=== PATIENT | male | born 1980 | race Caucasian/White ===

== ENCOUNTER 2020-10-27 14:15 | Emergency (ER) | payer BC ==
[2020-10-27] MEDS ORDERED: Ondansetron 4 MG Tab.DIS ONE (15:18)
[2020-10-27] MEDS ORDERED: Ondansetron 4 MG Tab.DIS PO ONE (15:21)
--- NOTE | 2020-10-27 15:47 | EDM.PDOC ---
ED HPI GENERAL MEDICAL PROBLEM - General Chief Complaint: Cardiovascular Problem Stated Complaint: DIABETIC/PASSING OUT Time Seen by Provider: 10/27/20 14:15 Source of Information: Reports: Patient, Family, RN - History of Present Illness INITIAL COMMENTS - FREE TEXT/NARRATIVE: 40-year-old male who is an insulin-dependent diabetic pump has been doing well recently and feeling perfectly fine. Today he was at the store with his when his heard him fall and he said that he felt that he was getting faint before he fell down. He was able to get up and it would come to the emergency department and arrival here in the waiting room had another brief episode of syncope and then once he got into the room and was being monitored he had another couple of episodes when he would say I am getting lightheaded and then started lose it momentarily and was noted to have a bradycardia on the monitor that would explain why he was having this syncopal fair. He had about 6 of these over. Of 20 or 30 minutes but none since. He has no cardiac history He is in generally good health aside from his diabetes. He is outside in subject potential Lyme disease although perhaps this time of the year. He has had his thyroid checked in the past. He does not complain of any headache or evidence of injury to his head. Location: Reports: Lower Extremity, Right - Related Data Allergies Allergy/AdvReac Type Severity Reaction Status Date / Time No Known Allergies Allergy Verified 10/27/20 14:39 Home Meds: Home Meds Insulin Aspart 1 unit SQ ASDIRECTED 10/27/20 [History] Past Medical History Endocrine/Metabolic History: Reports: Diabetes, Type I - Infectious Disease History Infectious Disease History: Reports: Herpes - Past Surgical History Musculoskeletal Surgical History: Reports: Other (See Below) Other Musculoskeletal Surgeries/Procedures:: chest wall repair Social & Family History - Tobacco Use Tobacco Use Status *Q: Never Tobacco User ED ROS GENERAL - Review of Systems Review Of Systems: See Below Constitutional: Reports: No Symptoms (10 systems reviewed and they are all negative except for what is described in HPI) ED EXAM, GENERAL - Physical Exam Exam: See Below Free Text/Narrative:: Initial exam is that of a man was able to get out of the wheelchair and onto the gurney and undressed although looking pale. Once he is onto the bed he again feels like he is passing out and does for a few seconds. Monitor is placed and he has a few more episodes of a few seconds of bradycardia coincident with this feeling of passing out. Once this passes his vital signs are otherwise stable and his exam is normal. HEENT shows eyes ears nose and throat are normal no facial droop tongue is midline hearing vision are normal no evidence of injury to the head. Neck is supple normal range of motion Chest is clear with a regular rate and rhythm no abnormal sounds Abdomen soft with active bowel sounds Skin is normal without rash or edema Extremities no deformity Neurologic physiologic urine tone. Exam Limited By: No Limitations General Appearance: Alert, WD/WN, No Apparent Distress Course - Vital Signs Text/Narrative:: 40-year-old insulin-dependent diabetic with a pump was at the store when he had a syncopal episode and about for 5 more here once he got emergency department with documented bradycardia. His work-up thus far is negative with exception of elevated bilirubin which is chronic. He is now been approximately an hour without any bradycardic episodes or syncope. Monitoring is necessary and a call was placed to [place] [facility] Dr. Ricardo and fur coat sewer is consulted and the hospitalist is awaiting transfer to telemetry at [facility]. Patient proved alert and cooperative at the time of discharge Last Recorded V/S: Last Vital Signs Temp 36.1 C 10/27/20 15:20 Pulse 66 10/27/20 17:11 Resp 17 10/27/20 17:11 BP 113/59 L 10/27/20 17:11 Pulse Ox 97 10/27/20 17:11 - Orders/Labs/Meds Orders: Active Orders 24 hr Category Date Time Status Chest 1V Frontal [CR] Stat Exams 10/27/20 14:32 Taken LYME, TOTAL AB TEST/REFLEX Stat Lab 10/27/20 14:30 Received EKG 12 Lead [EK] Stat Ther 10/27/20 14:30 Ordered Labs: Laboratory Tests 10/27/20 10/27/20 10/27/20 Range/Units 14:30 14:30 14:30 WBC 9.5 (4.5-11.0) K/uL RBC 5.25 (4.30-5.90) M/uL Hgb 16.1 H (12.0-15.0) g/dL Hct 47.0 (40.0-54.0) % MCV 90 (80-98) fL MCH 31 (27-31) pg MCHC 34 (32-36) % Plt Count 287 (150-400) K/uL ABG Hemoglobin (13.5-18.0) g/dL ABG Oxyhemoglobin % ABG Carboxyhemoglobin (0.0-1.6) % ABG Methemoglobin % VBG pH (7.350-7.450) VBG pCO2 mm/Hg VBG pO2 mm/Hg VBG HCO3 mmol/L VBG Total CO2 mmol/L VBG O2 Saturation VBG O2 Content %vol VBG Base Excess mm/L O2 Delivery Device Sodium 138 L (140-148) mmol/L Potassium 3.7 (3.6-5.2) mmol/L Chloride 104 (100-108) mmol/L Carbon Dioxide 25 (21-32) mmol/L Anion Gap 12.7 (5.0-14.0) mmol/L BUN 14 (7-18) mg/dL Creatinine 1.2 (0.8-1.3) mg/dL Est Cr Clr Drug Dosing TNP Estimated GFR (MDRD) > 60 (>60) Glucose 189 H (74-106) mg/dL Calcium 8.0 L (8.5-10.1) mg/dL Total Bilirubin 1.8 H (0.2-1.0) mg/dL AST 31 (15-37) U/L ALT 36 (12-78) U/L Alkaline Phosphatase 68 (46-116) U/L Troponin I 0.027 (0.000-0.056) ng/mL C-Reactive Protein 0.12 (0.0-0.3) mg/dL NT-Pro-B Natriuret Pep 18 (5-125) pg/mL Total Protein 6.4 (6.4-8.2) g/dL Albumin 3.8 (3.4-5.0) g/dL Globulin 2.6 (2.3-3.5) g/dL Albumin/Globulin Ratio 1.5 (1.2-2.2) TSH, Ultra Sensitive (0.358-3.740) uIU/mL Urine Color (YELLOW) Urine Appearance (CLEAR) Urine pH (5.0-8.0) Ur Specific [place] (1.008-1.030) Urine Protein (NEGATIVE) mg/dL Urine Glucose (UA) (NEGATIVE) mg/dL Urine Ketones (NEGATIVE) mg/dL Urine Occult Blood (NEGATIVE) Urine Nitrite (NEGATIVE) Urine Bilirubin (NEGATIVE) Urine Urobilinogen (0.2-1.0) EU/dL Ur Leukocyte Esterase (NEGATIVE) Urine RBC (0-5) Urine WBC (0-5) Ur Epithelial Cells Amorphous Sediment Urine Bacteria Urine Mucus SARS CoV-2 RNA Rapid LITO 10/27/20 10/27/20 10/27/20 Range/Units 14:30 14:42 15:41 WBC (4.5-11.0) K/uL RBC (4.30-5.90) M/uL Hgb (12.0-15.0) g/dL Hct (40.0-54.0) % MCV (80-98) fL MCH (27-31) pg MCHC (32-36) % Plt Count (150-400) K/uL ABG Hemoglobin 16.2 (13.5-18.0) g/dL ABG Oxyhemoglobin 81.3 % ABG Carboxyhemoglobin 1.9 H (0.0-1.6) % ABG Methemoglobin 1.0 % VBG pH 7.377 (7.350-7.450) VBG pCO2 43.1 mm/Hg VBG pO2 50.2 mm/Hg VBG HCO3 24.7 mmol/L VBG Total CO2 21.3 mmol/L VBG O2 Saturation 83.7 VBG O2 Content 18.5 %vol VBG Base Excess -0.1 mm/L O2 Delivery Device Room air Sodium (140-148) mmol/L Potassium (3.6-5.2) mmol/L Chloride (100-108) mmol/L Carbon Dioxide (21-32) mmol/L Anion Gap (5.0-14.0) mmol/L BUN (7-18) mg/dL Creatinine (0.8-1.3) mg/dL Est Cr Clr Drug Dosing Estimated GFR (MDRD) (>60) Glucose (74-106) mg/dL Calcium (8.5-10.1) mg/dL Total Bilirubin (0.2-1.0) mg/dL AST (15-37) U/L ALT (12-78) U/L Alkaline Phosphatase (46-116) U/L Troponin I (0.000-0.056) ng/mL C-Reactive Protein (0.0-0.3) mg/dL NT-Pro-B Natriuret Pep (5-125) pg/mL Total Protein (6.4-8.2) g/dL Albumin (3.4-5.0) g/dL Globulin (2.3-3.5) g/dL Albumin/Globulin Ratio (1.2-2.2) TSH, Ultra Sensitive 1.812 (0.358-3.740) uIU/mL Urine Color (YELLOW) Urine Appearance (CLEAR) Urine pH (5.0-8.0) Ur Specific [place] (1.008-1.030) Urine Protein (NEGATIVE) mg/dL Urine Glucose (UA) (NEGATIVE) mg/dL Urine Ketones (NEGATIVE) mg/dL Urine Occult Blood (NEGATIVE) Urine Nitrite (NEGATIVE) Urine Bilirubin (NEGATIVE) Urine Urobilinogen (0.2-1.0) EU/dL Ur Leukocyte Esterase (NEGATIVE) Urine RBC (0-5) Urine WBC (0-5) Ur Epithelial Cells Amorphous Sediment Urine Bacteria Urine Mucus SARS CoV-2 RNA Rapid LITO Negative 10/27/20 Range/Units 17:01 WBC (4.5-11.0) K/uL RBC (4.30-5.90) M/uL Hgb (12.0-15.0) g/dL Hct (40.0-54.0) % MCV (80-98) fL MCH (27-31) pg MCHC (32-36) % Plt Count (150-400) K/uL ABG Hemoglobin (13.5-18.0) g/dL ABG Oxyhemoglobin % ABG Carboxyhemoglobin (0.0-1.6) % ABG Methemoglobin % VBG pH (7.350-7.450) VBG pCO2 mm/Hg VBG pO2 mm/Hg VBG HCO3 mmol/L VBG Total CO2 mmol/L VBG O2 Saturation VBG O2 Content %vol VBG Base Excess mm/L O2 Delivery Device Sodium (140-148) mmol/L Potassium (3.6-5.2) mmol/L Chloride (100-108) mmol/L Carbon Dioxide (21-32) mmol/L Anion Gap (5.0-14.0) mmol/L BUN (7-18) mg/dL Creatinine (0.8-1.3) mg/dL Est Cr Clr Drug Dosing Estimated GFR (MDRD) (>60) Glucose (74-106) mg/dL Calcium (8.5-10.1) mg/dL Total Bilirubin (0.2-1.0) mg/dL AST (15-37) U/L ALT (12-78) U/L Alkaline Phosphatase (46-116) U/L Troponin I (0.000-0.056) ng/mL C-Reactive Protein (0.0-0.3) mg/dL NT-Pro-B Natriuret Pep (5-125) pg/mL Total Protein (6.4-8.2) g/dL Albumin (3.4-5.0) g/dL Globulin (2.3-3.5) g/dL Albumin/Globulin Ratio (1.2-2.2) TSH, Ultra Sensitive (0.358-3.740) uIU/mL Urine Color Yellow (YELLOW) Urine Appearance Clear (CLEAR) Urine pH 7.5 (5.0-8.0) Ur Specific [place] 1.020 (1.008-1.030) Urine Protein Trace H (NEGATIVE) mg/dL Urine Glucose (UA) 100 H (NEGATIVE) mg/dL Urine Ketones Negative (NEGATIVE) mg/dL Urine Occult Blood Negative (NEGATIVE) Urine Nitrite Negative (NEGATIVE) Urine Bilirubin Negative (NEGATIVE) Urine Urobilinogen 1.0 (0.2-1.0) EU/dL Ur Leukocyte Esterase Negative (NEGATIVE) Urine RBC 0-5 (0-5) Urine WBC 0-5 (0-5) Ur Epithelial Cells Not seen Amorphous Sediment Rare Urine Bacteria Rare Urine Mucus Occasional SARS CoV-2 RNA Rapid LITO Meds: Medications Discontinued Medications Generic Name Dose Route Start Last Admin Trade Name Freq PRN Reason Stop Dose Admin Ondansetron HCl Confirm 10/27/20 15:18 Zofran Odt Administered 10/27/20 15:19 Dose 4 mg .ROUTE .STK-MED ONE Ondansetron HCl 4 mg 10/27/20 15:21 10/27/20 15:22 Zofran Odt PO 10/27/20 15:22 4 mg ONETIME ONE Administration Departure - Departure Time of Disposition: 17:00 Disposition: DC/Tfer to Acute Hospital 02 Reason for Transfer *Q: Other Condition: Good Clinical Impression: Syncope, Bradycardia, Diabetes Referrals: PCP,None [Primary Care Provider] - Forms: ED Department Discharge, Interfacility Transfer EMTALA Additional Instructions: Dr. Ricardo in cardiology and [facility] is consulted and agrees to accept the patient in cardiology Dr. Dominguez the hospitalist agrees to accept the patient in transfer. Patient is stable here upon discharge is up looking fine at the moment and in no distress Sepsis Event Note (ED) - Evaluation Sepsis Screening Result: No Definite Risk - Focused Exam Vital Signs: Vital Signs Temp Pulse Resp BP Pulse Ox 10/27/20 17:11 66 17 113/59 L 97 10/27/20 16:44 65 10 L 117/64 99 10/27/20 16:12 63 13 115/53 L 99 10/27/20 15:38 61 10 L 118/76 98 10/27/20 15:23 59 L 14 112/71 98 10/27/20 15:20 36.1 C 58 L 19 111/67 97 10/27/20 15:08 58 L 19 111/67 97 10/27/20 14:50 57 L 15 110/69 97 10/27/20 14:28 117/68 10/27/20 14:21 36.1 C 47 L 8 L 103/68 95 10/27/20 14:18 55 L 13 112/62 94 L - My Orders Last 24 Hours: My Active Orders 10/27/20 14:30 LYME, TOTAL AB TEST/REFLEX Stat EKG 12 Lead [EK] Stat 10/27/20 14:32 Chest 1V Frontal [CR] Stat - Assessment/Plan Last 24 Hours: My Active Orders 10/27/20 14:30 LYME, TOTAL AB TEST/REFLEX Stat EKG 12 Lead [EK] Stat 10/27/20 14:32 Chest 1V Frontal [CR] Stat
--- NOTE | 2020-10-28 12:22 | CR ---
CHEST: Portable 10/27/2020 at 3:05 PM CLINICAL HISTORY:Pain COMPARISON:None FINDINGS: Heart is mildly enlarged. There is some mild vascular cephalization. This is likely positional. No infiltrates are seen. Impression: Limited portable supine chest. Mild cardiomegaly No infiltrates are seen
[2020-10-30 08:14] LABS: LYME IGG/IGM AB <0.91 ISR (0.00-0.90)
== END 2020-10-27 18:05 ==
LOC: JP.ED 14:15
DX: R55 Syncope and collapse (principal); R00.1 Bradycardia, unspecified; E10.9 Type 1 diabetes mellitus without complications; Z20.822 Contact with and (suspected) exposure to COVID-19
CPT/HCPCS: 36415; 71045; 80053; 81001; 82803; 83880; 84443; 84484; 85027; 86140; 86618; 87635; 93005; 93010; 99285; A9270; U0002

== ENCOUNTER 2022-06-15 07:47 | Emergency (ER) | payer BC, OTHER | END 2022-06-15 10:48 | disposition home or self-care (01) | LOC: JP.ED 07:47 | DX: R20.2 Paresthesia of skin (principal); E10.9 Type 1 diabetes mellitus without complications; Z86.16 Personal history of COVID-19; Z20.822 Contact with and (suspected) exposure to COVID-19 | CPT/HCPCS: 70450; 70551; 70551-26; 99284; U0002 ==

== ENCOUNTER 2022-11-03 09:35 | Emergency (ER) | payer OTHER ==
[2022-11-03 11:01] LABS: ESTIMATED GFR 96 mL/min (>60)
== END 2022-11-03 11:22 | disposition home or self-care (01) ==
LOC: JP.ED 09:35
DX: R20.0 Anesthesia of skin (principal); R20.2 Paresthesia of skin; E10.9 Type 1 diabetes mellitus without complications; Z86.16 Personal history of COVID-19
CPT/HCPCS: 36415; 80053; 81001; 83735; 85025; 99284

== ENCOUNTER 2023-10-22 06:25 | Day surgery (SDC) | payer OTHER ==
[2023-10-22] MEDS ORDERED: Acetaminophen 500 MG Tab PO ONE (06:45)
[2023-10-22] MEDS ORDERED: Bupivacaine 0.5%/EPINEPHrine 1:200,000 50 ML MDV ONE (06:46)
[2023-10-22] MEDS ORDERED: Rocuronium 50 MG/5 ML Vial ONE (07:12)
[2023-10-22] MEDS ORDERED: Glycopyrrolate 0.2 MG/ML 5 ML MDV ONE (07:12)
[2023-10-22] MEDS ORDERED: Neostigmine Methylsulfate 10 MG/10 ML MDV ONE (07:12)
[2023-10-22] MEDS ORDERED: Propofol 200 MG/20 ML SDV ONE (07:12)
[2023-10-22] MEDS ORDERED: Dexamethasone 4 MG/ML SDV ONE (07:12)
[2023-10-22] MEDS ORDERED: fentaNYL 250 MCG/5 ML SDV ONE (07:12)
[2023-10-22] MEDS ORDERED: Ondansetron 4 MG/2 ML SDV ONE (07:12)
[2023-10-22] MEDS ORDERED: Lactated Ringers 1,000 ML IV SCH (07:30)
[2023-10-22] MEDS ORDERED: ceFAZolin 2 GM in Sodium Chloride 0.9% 50 ML IV ONE (08:00)
[2023-10-22] MEDS ORDERED: ceFAZolin 2 GM in Premix Bag 1 BAG IV ONE (08:00)
[2023-10-22] MEDS ORDERED: Acetaminophen/HYDROcodone 325-5 MG Tab PO ONE (10:45)
== END 2023-10-22 11:30 | disposition home or self-care (01) ==
LOC: JP.SDS 06:25
PROVIDERS: ATTEND Student in an Organized Health Care Education/Training Program
DX: K42.9 Umbilical hernia without obstruction or gangrene (principal); E11.9 Type 2 diabetes mellitus without complications; Z79.4 Long term (current) use of insulin; Z79.899 Other long term (current) drug therapy
CPT/HCPCS: 49591; A9270; J0690; J1100; J2405; J2704; J2710; J3010; J3490; J7120